=== PATIENT | male | born 1970 | race Caucasian/White ===

== ENCOUNTER → 2016-10-28 | Outpatient (CLI) | payer MEDICAID ==
[~2016-10-28] MED LIST: ASPIRIN 81MG TA81 MG PO; CLOPIDOGREL75 MG PO; NITROSTAT 0.4M0.4 MG SL; SIMVASTATIN40 MG PO
--- NOTE | 2016-10-30 11:01 | RADIOLOGY REPORT PS360 ---
CT CHEST W/O CONTRAST ORDERING PHYSICIAN : SAPNA STEWART MD PATIENT AGE: 46 years GENDER: Male INDICATION: DYSPNEA ON EXERTION, CURRENT TOBACCO USE TECHNIQUE: Helical CT scanning chest with no IV contrast. Sagittal coronal reconstruction CT workstation. COMPARISON: Previous CT chest PA and lateral chest 02/10/2016 FINDINGS LUNGS.. - Underlying mild early centri lobar emphysematous changes. Of question some minor subtle thickening of interstitium in some areas & question early fibrotic change. Less optimal inspiration today accentuates some markings in features. There is slight additional groundglass opacity towards the posterior sulcus region bilaterally, most evident towards left posterior sulcus. Suspect this mainly reflects atelectasis although difficult to totally exclude very subtle minimal infiltrate posterior left lung base as seen on lateral sagittal image 73. Also similar subtle groundglass opacity is seen along the posterior margin of upper lobes, just distal along the major fissure. This also slightly more evident on left than more so than right. Lung The above are minor changes since previous 2013 CT chest. No significant appearing nodule. This is stable subtle density at the minor fissure seen on axial image 43 and sagittal knees 36. Slight flattening merely reflects an area of pleural thickening or small fissure nodule. Not of concern Calcified granuloma at left lung base measuring 5.6 mm is stable and not of concern. MEDIASTINUM. . Scattered moderate-sized nodes throughout the mediastinum appear stable. Appear to be most likely reactive nodes with no pathologic adenopathy. One of the larger nodes at the left paratracheal region again noted with short axis just less than 10 mm x 12.5 mm length At the right paratracheal region there is a 14 mm x 7 mm node. Stable. Stable calcified nodes subcarinal region. A question of one or 2 small stable nodes at right hilum. No prominent hilar mass or endobronchial lesion. Coronary artery LAD stent in place. Heart normal size. Great vessels appear normal and stable.. Borderline thickening of central airways. No significant lung nodules.. Upper abdomen. Adrenals normal. No significant findings.. -------IMPRESSION: 1. No significant lung nodule or masses. No significant acute pulmonary findings 2. No significant mediastinal adenopathy. Stable small to moderate size reactive nodes 3. Mild central lobar emphysema this changes . 4.. Subtle ground glass opacity towards posterior sulcus bilaterally most evident on left. Most likely likely reflecting minimal atelectasis although difficult to exclude subtle infiltrate posterior left lung base.. Also very minor groundglass opacity along anterior aspect superior most major fissure bilaterally of similar character. 5. The very small flat nodule at minor fissure is stable and not of concern.
== END ==
LOC: RAD 13:58
DX: R06.09 Other forms of dyspnea (principal); Z72.0 Tobacco use